=== PATIENT | female | born 1955 | race Caucasian/White ===

== ENCOUNTER 2017-03-14 14:18 | Emergency (ER) | payer MEDICAID ==
--- NOTE | 2017-03-14 14:59 | CPEKG ---
Heart Rate: 86 RR Interval: 698 P-R Interval: 148 QRSD Interval: 76 QT Interval: 380 QTC Interval: 455 P [place]: -41 QRS [place]: 10 T Wave [place]: 0 EKG Severity - BORDERLINE ECG - EKG Impression: SINUS RHYTHM EKG Impression: BORDERLINE T ABNORMALITIES, ANTERIOR LEADS Electronically Signed By: Patrick Bethea 14-Mar-2017 15:15:08
[2017-03-14] MEDS ORDERED: LORazepam 2 MG/ML INJ IVP ONE (15:08)
--- NOTE | 2017-03-14 15:13 | EDPHY ---
H & P Stated Complaint: swollen hands back pain +SOB legs swollen Time Seen by Provider: 03/14/17 14:45 HPI/ROS: CHIEF COMPLAINT: Anxiety HISTORY OF PRESENT ILLNESS: The patient is a 62-year-old female with a history of obesity as well as a remote DVT as well as diabetes.. She denies history of cardiac or pulmonary or liver or kidney disease. She states that over the last few weeks she has had swelling in her hands and legs. She states that on her drive here she began feeling short of breath and having mild chest pressure as well. She tells me that she does not feel well and she feels very anxious. She also has chronic thoracic back pain which she thinks is worsening ever since she had liposuction 1 year ago. She also feels like her abdomen is slightly distended. She is having normal bowel and bladder habits. No nausea vomiting. No fevers. She did recently start a new medication injectable for her diabetes [place] and she is wondering if her symptoms could be from this. REVIEW OF SYSTEMS: Constitutional: See HPI, denies: chills, fever, recent illness, recent injury EENTM: denies: blurred vision, double vision, nose congestion Respiratory: See HPI, denies: cough Cardiac: See HPI, denies: chest pain, irregular heart rate, lightheadedness, palpitations Gastrointestinal/Abdominal: See HPI, denies: abdominal pain, diarrhea, nausea, vomiting, blood streaked stools Genitourinary: denies: dysuria, frequency, hematuria, pain Musculoskeletal: denies: joint pain, muscle pain Skin: denies: lesions, rash, jaundice, bruising Neurological: denies: headache, numbness, paresthesia, tingling, dizziness, weakness Hematologic/Lymphatic: denies: blood clots, easy bleeding, easy bruising Immunologic/allergic: denies: HIV/AIDS, transplant EXAM: GENERAL: Well-appearing, well-nourished and in no acute distress. HEAD: Atraumatic, normocephalic. EYES: Pupils equal round and reactive to light, extraocular movements intact, sclera anicteric, conjunctiva are normal. ENT: TMs normal, nares patent, oropharynx clear without exudates. Moist mucous membranes. NECK: Normal range of motion, supple without lymphadenopathy or JVD. LUNGS: Breath sounds clear to auscultation bilaterally and equal. No wheezes rales or rhonchi. HEART: Regular rate and rhythm without murmurs, rubs or gallops. ABDOMEN: Soft, nontender, normoactive bowel sounds. No guarding, no rebound. No masses appreciated. BACK: No CVA tenderness, no spinal tenderness, step-offs or deformities EXTREMITIES: Normal range of motion, no pitting or edema. No clubbing or cyanosis. NEUROLOGICAL: Cranial nerves II through XII grossly intact. Normal speech, normal gait. 5/5 strength, normal movement in all extremities, normal sensation PSYCH: Normal mood, normal affect. SKIN: Warm, dry, normal turgor, no visible rashes or lesions. Source: Patient Exam Limitations: No limitations - Personal History Current Tetanus/Diphtheria Vaccine: Unsure Current Tetanus Diphtheria and Acellular Pertussis (TDAP): Unsure - Medical/Surgical History Hx Asthma: No Hx Chronic Respiratory Disease: No Hx Diabetes: Yes Hx Cardiac Disease: No Hx Renal Disease: No Hx Cirrhosis: No Hx Alcoholism: No Hx HIV/AIDS: No Hx Splenectomy or Spleen Trauma: No Other PMH: HTN, DM, DVT - Family History Significant Family History: No pertinent family hx - Social History Smoking Status: Never smoked Alcohol Use: Sober Drug Use: None Constitutional: Initial Vital Signs Temperature (C) 36.6 C 03/14/17 14:24 Heart Rate 88 03/14/17 14:24 Respiratory Rate 16 03/14/17 14:24 Blood Pressure 155/71 H 03/14/17 14:24 O2 Sat (%) 97 03/14/17 14:24 O2 Delivery Mode Room Air O2 (L/minute) 2 Allergies/Adverse Reactions: ibuprofen Allergy (Verified 11/24/16 16:12) Other-Enter Comments Home Medications: Medication Instructions Recorded Amlodipine Besylate 11/24/16 Citalopram 11/24/16 Flaxseed Oil 11/24/16 IRON 11/24/16 Losartan Potassium 11/24/16 Metformin HCl 11/24/16 Omeprazole 11/24/16 Vitamin D3 11/24/16 oxyCODONE CR 11/24/16 AMITRIPTYLINE HCL 11/29/16 Atorvastatin Calcium 11/29/16 Furosemide 11/29/16 Miralax 17 gm (*) 11/29/16 Potassium Chloride 11/29/16 Rectiv 11/29/16 LORazepam [Ativan 1 mg (RX)] 1 mg PO Q6-8PRN PRN #10 tab 03/14/17 Medical Decision Making - Diagnostics EKG Interpretation: An EKG obtained and was read and documented in trace view. Please see trace view for full reading and report. Sinus rhythm, no acute ischemic changes, diffuse T-wave inversions nonspecific ED Course/Re-evaluation: The patient has a wide variety of nondescript symptoms. She has a normal physical exam normal vital signs. We will run several lab tests including imaging studies and EKG and observed. Her abdominal exam is benign. Lung exam is benign We discussed the test results. Patient and are reassured. After further discussion we determined that her symptoms began around the time her doctor took her off of Ativan several months ago which she had been taking for anxiety. I offered to start her on a short course of Ativan until she can follow back up with her doctor for to discuss alternatives. She is happy with this plan. She also is requesting referral to Plastic surgery because she is not happy with the way her abdomen has been slightly painful ever since her tummy tuck 1 year ago. Differential Diagnosis: Partial list of the Differential diagnosis considered include but were not limited to; PE, dissection, anxiety, electrolyte abnormality and although unlikely based on the history and physical exam, I also considered pneumothorax , acute coronary disease, CVA. I discussed these differential diagnoses and the plan with the patient as well as the usual and expected course. The patient understands that the diagnosis is provisional and that in medicine we are not always correct and that further workup is often warranted. Usual and customary warnings were given. All of the patient's questions were answered. The patient was instructed to return to the emergency department should the symptoms at all worsen or return, otherwise to followup with the physician as we discussed. - Data Points Laboratory Results: Laboratory Results 03/14/17 15:40 03/14/17 15:40 Medications Given: Discontinued Medications Lorazepam (Ativan Injection) 0.5 mg IVP EDNOW ONE Stop: 03/14/17 15:09 Last Admin: 03/14/17 15:40 Dose: 0.5 mg Departure - Departure Disposition: Home, Routine, Self-Care Clinical Impression: Anxiety Back pain, thoracic Qualifiers: Chronicity: acute Back pain laterality: bilateral Qualified Code(s): M54.6 - Pain in thoracic spine Condition: Fair Instructions: Back Pain (ED), Anxiety (ED) Referrals: Kristen Odell MD [Primary Care Provider] - As per Instructions Janak Pak MD [Medical Doctor] - As per Instructions Prescriptions: LORazepam [Ativan 1 mg (RX)] 1 mg PO Q6-8PRN PRN #10 tab PRN Reason: *Anxiety/Agitation/Insomnia Print Language: Congolese
[2017-03-14 16:07] LABS: % IMMATURE GRANULYOCYTES 0.2 % (0.0-1.1); ABSOLUTE IMMATURE GRANULOCYTES 0.01 10^3/uL (0.00-0.10); ADD DIFF? NO; ADD MORPH? NO; ADD SCAN? NO; ATYPICAL LYMPHOCYTE FLAG 0 (0-99); FRAGMENT RBC FLAG 0 (0-99); HEMOGLOBIN 11.7 g/dL (12.6-16.3); LEFT SHIFT FLG 0 (0-99); LIPEMIA HEMOLYSIS FLAG 90 (0-99); MEAN CELL HEMOGLOBIN 28.7 pg (27.9-34.1); MEAN CELL HEMOGLOBIN CONCENTR. 34.4 g/dL (32.4-36.7); MEAN CELL VOLUME 83.5 fL (81.5-99.8); MEAN PLATELET VOLUME 9.7 fL (8.7-11.7); PLATELET CLUMPS FLAG 0 (0-99); PLATELET COUNT 225 10^3/uL (150-400); RED BLOOD CELL COUNT 4.07 10^6/uL (4.18-5.33); RED CELL DISTRIBUTION WIDTH 15.1 % (11.5-15.2)
[2017-03-14 16:13] LABS: INR 0.99 (0.83-1.16)
[2017-03-14 16:14] LABS: APTT 24.6 SEC (23.0-38.0)
[2017-03-14 16:22] LABS: ALANINE AMINOTRANSFERASE 44 IU/L (9-52); ALBUMIN 3.8 g/dL (3.5-5.0); ALKALINE PHOSPHATASE 55 IU/L (38-126); ANION GAP 15 mEq/L (8-16); ASPARTATE AMINOTRANSFERASE 31 IU/L (14-46); BILIRUBIN,TOTAL 0.8 mg/dL (0.1-1.4); BILIRUBIN-CONJUGATED 0.4 mg/dL (0.0-0.5); BILIRUBIN-UNCONJUGATED 0.4 mg/dL (0.0-1.1); CALCIUM 8.6 mg/dL (8.5-10.4); CARBON DIOXIDE 25 mEq/l (22-31); CHLORIDE 101 mEq/L (97-110); CREATININE 0.6 mg/dL (0.6-1.0); GLOMERULAR FILTRATION RATE > 60; GLUCOSE 159 mg/dL (70-100); POTASSIUM 3.5 mEq/L (3.5-5.2); SODIUM 141 mEq/L (134-144); TOTAL PROTEIN 6.8 g/dL (6.3-8.2)
[2017-03-14 16:33] LABS: TROPONIN I < 0.012 ng/mL (0-0.034)
[2017-03-14] MEDS ORDERED: IOPAMIDOL (ISOVUE 370) 100 ML BTL IV ONE (16:49)
[2017-03-14 17:57] LABS: COLOR PALE YELLOW; LEUKOCYTE ESTERASE,URINE NEGATIVE (NEGATIVE); NITRITE,URINE NEGATIVE (NEGATIVE)
[2017-03-14 18:07] LABS: RBC,URINE NONE SEEN /hpf (0-3)
[2017-03-14 19:11] VITALS: BP 137/57; PULSE 75; RESP 16; TEMP 97.9; O2SAT 95
== END 2017-03-14 19:19 | disposition home or self-care (01) ==
DX: F41.9 Anxiety disorder, unspecified (principal); M54.6 Pain in thoracic spine; E11.9 Type 2 diabetes mellitus without complications; Z79.84 Long term (current) use of oral hypoglycemic drugs
CPT/HCPCS: 96374; J2060; Q9967